=== PATIENT | female | born 1965 | race Hispanic/Latino ===

== ENCOUNTER 2018-10-29 09:34 | Day surgery (SDC) | payer OTHER ==
[2018-10-28 12:33] LABS: BASOPHILS % (AUTO) 0.9 % (0.0-5.0); EOSINOPHILS % (AUTO) 0.9 % (0.0-8.0); HEMATOCRIT 38.3 % (36-48); LYMPHOCYTES % (AUTO) 11.1 % (21.0-51.0); MEAN CORPUSCULAR HEMOGLOBIN 29.3 pg (27.0-33.0); MEAN CORPUSCULAR HGB CONC 32.6 g/dL (32.0-36.0); MONOCYTES % (AUTO) 3.4 % (3.0-13.0); NEUTROPHILS % (AUTO) 83.7 % (40.0-77.0); PLATELET COUNT (AUTO) 329 K/uL (130-400); RED BLOOD CELL COUNT(AUTO) 4.26 MIL/uL (4.00-5.50); RED CELL DISTRIBUTION WIDTH 15.6 % (11.0-15.5); WHITE BLOOD COUNT (AUTO) 14.2 K/uL (4.8-10.8)
[2018-10-28 12:42] LABS: CREATININE 7.3 mg/dL (0.5-1.5); POTASSIUM 4.1 mmol/L (3.5-5.1)
[2018-10-28 12:47] LABS: INR 0.91 (0.85-1.15); PARTIAL THROMBOPLASTIN TIME 29.2 SEC (26.3-35.5); PROTHROMBIN TIME 9.6 SEC (9.6-11.6)
[2018-10-28 14:00] VITALS: BP 112/60
--- NOTE | 2018-10-28 15:48 | NUR ---
ABNORMAL LABS ABNORMAL LABS REPORTED TO DR. EMILY RAO'S BEST WORKER WBC 14.2, BUN 44, CREAT 7.3. ALSO NOTIFIED BECKI PT WAS NOT ABLE TO GIVE URINE SAMPLE. NO FURTHER ORDERS GIVEN AT THIS TIME. STATES WILL EVALUATE PT TOMORROW PRIOR TO PROCEDURE.
[2018-10-29] VITALS (9 sets, daily range): BP systolic 109–178; BP diastolic 49–73
[~2018-10-29 09:34] MED LIST: FERR325T29 PO; FOLI0.8T5 PO; FOLI1TAB82 PO; GABA-529 PO; INSU100C6 SQ; LINA5TAB PO; METO-409 PO; OMEP40CA37 PO; PHOSLOC PO; PRAM1TAB7 PO; SODIUM CHLORIDE 0.9% 500ML 500 ML IV SCH
--- NOTE | 2018-10-29 09:35 | NUR ---
PATIENT ARRIVED PATIENT ARRIVED TO DAY PATIENT ACCOMPANIED BY SON. PATIENT AAOX3, RESPIRATIONS UNLABORED, VITAL SIGNS STABLE. DENIES ANY PAIN AT THIS TIME. PROCEDURE VERIFIED AND EXPLAINED TO PATIENT AND PATIENT'S SON. HOSPITAL ROUTINE EXPLAINED TO PATIENT. CALL VILLA IN REACH, BED IN LOWEST POSITION, SIDE RAILS UP X 2.
[2018-10-29] MEDS ORDERED: SODIUM CHLORIDE 0.9% 1000ML 1,000 ML IV ONE (10:59)
[2018-10-29] MEDS ORDERED: SUPER B COMPLEX PO (11:27)
[2018-10-29] MEDS ORDERED: BRIM5DRO4 OU (11:27)
[2018-10-29] MEDS ORDERED: DORZ10DR10 OU (11:27)
[2018-10-29] MEDS ORDERED: LATA7.5D OU (11:27)
[2018-10-29] MEDS ORDERED: METO5TAB2 PO (11:27)
[2018-10-29] MEDS ORDERED: HEPARIN SODIUM 1000UNIT/ML 10ML VIAL ONE (13:46)
[2018-10-29] MEDS ORDERED: BIVALIRUDIN 250 MG/VIAL IV ONE (13:46)
[2018-10-29] MEDS ORDERED: IOHEXOL-350 50ML VIAL IV ONE (13:47)
[2018-10-29] MEDS ORDERED: LIDOCAINE HCL 2% 20ML ONE (13:47)
[2018-10-29] MEDS ORDERED: NITROGLYCERIN 5 MG/ML 10 ML VIAL IV ONE (13:47)
[2018-10-29] MEDS ORDERED: IOHEXOL 350 MG/ML 100ML INFUS..BTL IV ONE (13:47)
[2018-10-29] MEDS ORDERED: VERAPAMIL HCL 2.5 MG/ML VIAL ONE (13:50)
--- NOTE | 2018-10-29 14:00 | NUR ---
PATIENT TRANSFERRED' PATIENT TAKEN TO RETAIL SPECIALIST VIA BED BY EVERARDO ROBBINS.
[2018-10-29] MEDS ORDERED: LABETALOL HCL 5 MG/ML 20ML VIAL IV ONE (15:03)
[2018-10-29] MEDS ORDERED: SODIUM CHLORIDE 0.9% 1000ML 1,000 ML IV SCH (15:14)
[2018-10-29] MEDS ORDERED: LABETALOL 20 MG/4 ML DISP.SYRIN IV SCH (15:15)
--- NOTE | 2018-10-29 15:50 | NUR ---
PATIENT RETURNED PATIENT BROUGHT BACK FROM REPRESENTATIVE VIA BED BY EVERARDO ROBBINS AND EVERARDO WINSTON. PATIENT AAOX3, RESPIRATIONS UNLABORED, VITAL SIGNS STABLE, DENIES ANY PAIN AT THIS TIME. FAMILY MEMBERS IN ROOM. RIGHT FEMORAL SITE WITH DRESSING IN PLACE (DSTAT). NO BLEEDING NOTED, NO HEMATOMA, NO DRAINAGE. AREA IS SOFT AND NONTENDER. WILL CONTINUE TO MONITOR SITE. INSTRUCTED PATIENT TO KEEP HER RIGHT LEG STRAIGHT AND FLAT, PATIENT VERBALIZED UNDERSTANDING. SIDERAILS UP X2, BED IN LOWEST POSITION, CALL VILLA IN REACH.
[2018-10-29] MEDS ORDERED: INSULIN LISPRO 100 UNIT/ML 3ML SQ SCH (16:30)
[2018-10-29] MEDS ORDERED: INSULIN HUMULIN R 100 UNIT/ML 3ML ONE (16:45)
--- NOTE | 2018-10-29 20:53 | NUR ---
PT. V/S STABLE NO HEMATOMA, NO BLEEDING, NO PAIN. PT LEFT WITH D/C INSTRUCTION GIVEN TO HER SON. PT. LEFT VIA WHEELCHAIR IN PVT CAR WITH SON.
[2018-10-29] MEDS ORDERED: INSULIN HUMULIN R 100 UNIT/ML 3ML SQ SCH (21:00)
== END 2018-10-29 20:56 | disposition home or self-care (01) ==
LOC: DAH 09:34
PROVIDERS: ATTEND Internal Medicine Cardiovascular Disease
DX: I25.118 Atherosclerotic heart disease of native coronary artery with other forms of angina pectoris (principal); E78.5 Hyperlipidemia, unspecified; I10 Essential (primary) hypertension; E11.21 Type 2 diabetes mellitus with diabetic nephropathy; E11.319 Type 2 diabetes mellitus with unspecified diabetic retinopathy without macular edema; Z79.899 Other long term (current) drug therapy; Z98.890 Other specified postprocedural states; Z88.0 Allergy status to penicillin; Z88.1 Allergy status to other antibiotic agents; Z88.8 Allergy status to other drugs, medicaments and biological substances; Z79.4 Long term (current) use of insulin; Z82.5 Family history of asthma and other chronic lower respiratory diseases; Z83.3 Family history of diabetes mellitus; Z82.49 Family history of ischemic heart disease and other diseases of the circulatory system
CPT/HCPCS: 36415; 71045; 80048; 82948 ×2; 85025; 85610; 85730; 93005; 93458; A4215; A4216; A4221; A4222; A4223 ×3; A4606; C1760; C1894 ×2; J1644; J1815; J3490 ×3; J7030; Q9965; Q9967 ×2; J0583